=== PATIENT | female | born 1945 | race Caucasian/White ===

== ENCOUNTER → 2016-07-19 | Outpatient (CLI) | payer BC ==
[~2016-07-19] MED LIST: ADVIN10/60 INH; ALEN1TAB21 PO; ASPI81TA28 PO; CALC0.5C17 PO; CARV25TA2 PO; FERR1TAB23 PO; FLUO20CA35 PO; FRS/40 PO; GLIM4TAB2 PO; IPRASOL34 INH; LOSA100T65 PO; PRAV20TA PO; PRLSR20 PO; SPIRIVA PO; WARF1TAB6 PO
== END | disposition home or self-care (01) ==
LOC: C.LABMFLN 12:52
PROVIDERS: ATTEND Family Medicine
DX: L03.211 Cellulitis of face (principal)

== ENCOUNTER → 2016-08-10 | Outpatient (CLI) | payer BC ==
[2016-08-10 13:46] LABS: URINE APPEARANCE CLEAR (CLEAR); URINE BILIRUBIN NEG (NEG); URINE COLOR YELLOW; URINE EPITHELIAL CELL AUTO >30 /lpf (0-5); URINE NITRITE NEG (NEG); URINE SPECIFIC GRAVITY 1.017 (1.000-1.030); UROBILINOGEN NEG (NEG)
[2016-08-10 13:54] LABS: MANUAL MICROSCOPIC REQUIRED? NO; REVIEW REQ? YES
[2016-08-10 14:07] LABS: URINE PROTIEN/CREAT RATIO 0.3 (0-0.2); URINE TOTAL PROTEIN 40.8 mg/dl (0-11.9)
== END | disposition home or self-care (01) ==
LOC: C.LABMFLN 08:32
PROVIDERS: ATTEND Family Medicine
DX: R35.0 Frequency of micturition (principal); I12.9 Hypertensive chronic kidney disease with stage 1 through stage 4 chronic kidney disease, or unspecified chronic kidney disease; N18.3 Chronic kidney disease, stage 3 (moderate); N25.81 Secondary hyperparathyroidism of renal origin; D63.8 Anemia in other chronic diseases classified elsewhere; E55.9 Vitamin D deficiency, unspecified

== ENCOUNTER → 2016-08-24 | Outpatient (CLI) | payer BC ==
[2016-08-24 12:50] LABS: HEMATOCRIT 35.4 % (37-47); MEAN CELL VOLUME 79.7 fL (80-100); MEAN CORPUSCULAR HEMOGLOBIN 24.8 pg (25-34); MEAN CORPUSCULAR HGB CONC 31.1 g/dl (32-36); MEAN PLATELET VOLUME 9.8 fL (7.4-10.4); PLATELET COUNT 266 K/uL (130-400); RED BLOOD COUNT 4.44 M/uL (4.2-5.4); WHITE BLOOD COUNT 11.72 K/uL (4.8-10.8)
[2016-08-24 13:20] LABS: BLOOD UREA NITROGEN 24 mg/dl (7-18); BUN/CREATININE RATIO 14.9 (10-20); CALCIUM 9.6 mg/dl (8.5-10.1); CARBON DIOXIDE 26 mmol/L (21-32); CHLORIDE 106 mmol/L (98-107); GLUCOSE 174 mg/dl (70-99); PHOSPHORUS 3.4 mg/dl (2.5-4.9); SODIUM 141 mmol/L (136-145)
== END | disposition home or self-care (01) ==
LOC: C.LABMFLN 08:17
PROVIDERS: ATTEND Internal Medicine Nephrology
DX: I12.9 Hypertensive chronic kidney disease with stage 1 through stage 4 chronic kidney disease, or unspecified chronic kidney disease (principal); E55.9 Vitamin D deficiency, unspecified; N25.81 Secondary hyperparathyroidism of renal origin; D63.8 Anemia in other chronic diseases classified elsewhere; N18.3 Chronic kidney disease, stage 3 (moderate)

== ENCOUNTER → 2016-09-26 | Outpatient (CLI) | payer BC ==
[2016-09-26 18:18] LABS: CHOLESTEROL/HDL RATIO 3.9
[2016-09-27 06:31] LABS: ESTIMATED AVERAGE GLUCOSE 183 mg/dl; HA1C FLAG Normal (Normal)
--- NOTE | 2016-10-04 12:49 | CODING QUERY MEDICAL NECESSITY ---
SUPPORTING DIAGNOSIS NEEDED A supporting diagnosis is required for the test/procedure performed on this patient in order for us to be reimbursed by the patient's insurance. Please provide a supporting diagnosis for the following test/procedure listed below next to the test name along with your signature. *If there is no additional diagnosis for this patient that would support the following test/procedure please document that below next to the test/procedure. Test(s)/Procedure(s) that require a supporting diagnosis: DOS 09/26 * Hba1c DIAGNOSIS: Provider Signature: Date: Thank you Karen [facility] Information Management Once completed, please kindly fax back to [phone] For questions please call [phone]
== END | disposition home or self-care (01) ==
LOC: C.LABMFLN 10:32
PROVIDERS: ATTEND Family Medicine
DX: E55.9 Vitamin D deficiency, unspecified (principal); D63.8 Anemia in other chronic diseases classified elsewhere; I25.10 Atherosclerotic heart disease of native coronary artery without angina pectoris; E11.9 Type 2 diabetes mellitus without complications

== ENCOUNTER → 2017-01-30 | Outpatient (CLI) | payer BC ==
[2017-01-30 18:26] LABS: ALT/SGPT 17 U/L (12-78); AST/SGOT 10 U/L (15-37); BLOOD UREA NITROGEN 21 mg/dl (7-18); BUN/CREATININE RATIO 13.3 (10-20); CALCIUM 9.2 mg/dl (8.5-10.1); CARBON DIOXIDE 26 mmol/L (21-32); CHLORIDE 111 mmol/L (98-107); GLUCOSE 135 mg/dl (70-99); POTASSIUM 4.6 mmol/L (3.5-5.1); SODIUM 143 mmol/L (136-145)
[2017-01-30 18:30] LABS: ALKALINE PHOSPHATASE 92 U/L (45-117); CHOLESTEROL 133 mg/dl (0-200); CHOLESTEROL/HDL RATIO 2.3; HDL CHOLESTEROL 59 mg/dl; LDL CHOLESTEROL CALCULATED 58 mg/dl; TRIGLYCERIDES 78 mg/dl (0-150); VERY LOW DENSITY LIPOPROT CALC 16 mg/dl
[2017-01-30 18:39] LABS: HEMATOCRIT 34.1 % (37-47); MEAN CORPUSCULAR HEMOGLOBIN 24.7 pg (25-34); MEAN CORPUSCULAR HGB CONC 30.5 g/dl (32-36); MEAN PLATELET VOLUME 10.2 fL (7.4-10.4); PLATELET COUNT 221 K/uL (130-400); RED BLOOD COUNT 4.21 M/uL (4.2-5.4)
[2017-01-31 07:43] LABS: ESTIMATED AVERAGE GLUCOSE 192 mg/dl; HA1C FLAG Normal (Normal)
== END | disposition home or self-care (01) ==
LOC: C.LABMFLN 11:49
PROVIDERS: ATTEND Family Medicine
DX: I25.10 Atherosclerotic heart disease of native coronary artery without angina pectoris (principal); E78.5 Hyperlipidemia, unspecified; Z86.39 Personal history of other endocrine, nutritional and metabolic disease; D63.8 Anemia in other chronic diseases classified elsewhere; N18.3 Chronic kidney disease, stage 3 (moderate); Z86.79 Personal history of other diseases of the circulatory system; E83.42 Hypomagnesemia

== ENCOUNTER → 2017-02-06 | Outpatient (CLI) | payer BC ==
[2017-02-06 13:21] LABS: HEMATOCRIT 33.5 % (37-47)
[2017-02-06 13:34] LABS: TOTAL IRON BINDING CAPACITY 341 mcg/dl (250-450)
[2017-02-06 13:38] LABS: URINE PROTIEN/CREAT RATIO 0.2 (0-0.2); URINE TOTAL PROTEIN 26.6 mg/dl (0-11.9)
[2017-02-06 13:46] LABS: URINE APPEARANCE CLEAR (CLEAR); URINE BILIRUBIN NEG (NEG); URINE COLOR YELLOW; URINE EPITHELIAL CELL AUTO >30 /lpf (0-5); URINE NITRITE NEG (NEG); URINE SPECIFIC GRAVITY 1.015 (1.000-1.030); UROBILINOGEN NEG (NEG)
[2017-02-06 13:57] LABS: MANUAL MICROSCOPIC REQUIRED? NO; REVIEW REQ? NO
--- NOTE | 2017-03-02 10:16 | CODING QUERY MEDICAL NECESSITY ---
SUPPORTING DIAGNOSIS NEEDED Dr. Wilder, A supporting diagnosis is required for the test/procedure performed on this patient in order for us to be reimbursed by the patient's insurance. Please provide a supporting diagnosis for the following test/procedure listed below next to the test name along with your signature. *If there is no additional diagnosis for this patient that would support the following test/procedure please document that below next to the test/procedure. Test(s)/Procedure(s) that require a supporting diagnosis: * ([id number]) B12 VITAMIN LEVEL DIAGNOSIS: * ([id number]) FOLATE LEVEL DIAGNOSIS: DATE OF SERVICE: 02/06/17 Provider Signature: Date: Thank you Leo George [facility] Information Management Once completed, please kindly fax back to [phone] For questions please call [phone]
== END | disposition home or self-care (01) ==
LOC: C.LABMFLN 10:45
PROVIDERS: ATTEND Family Medicine
DX: Z95.2 Presence of prosthetic heart valve (principal); D63.8 Anemia in other chronic diseases classified elsewhere; Z86.79 Personal history of other diseases of the circulatory system; E55.9 Vitamin D deficiency, unspecified; N25.81 Secondary hyperparathyroidism of renal origin; E83.42 Hypomagnesemia; N18.3 Chronic kidney disease, stage 3 (moderate); R31.29 Other microscopic hematuria

== ENCOUNTER → 2017-07-24 | Outpatient (CLI) | payer BC ==
[~2017-07-24] MED LIST changes: +CALC0.5C PO; -CALC0.5C17 PO
== END | disposition home or self-care (01) ==
LOC: C.LABMFLN 12:03
PROVIDERS: ATTEND Family Medicine
DX: I35.9 Nonrheumatic aortic valve disorder, unspecified (principal)

== ENCOUNTER → 2017-09-04 | Outpatient (CLI) | payer BC ==
[~2017-09-04] MED LIST changes: -ALEN1TAB21 PO; +ALEN35TA42 PO
[2017-09-04 12:45] LABS: HEMATOCRIT 33.8 % (37-47); HEMOGLOBIN 10.4 g/dL (12.0-16.0); MEAN CELL VOLUME 78.8 fL (80-100); MEAN CORPUSCULAR HEMOGLOBIN 24.2 pg (25-34); MEAN CORPUSCULAR HGB CONC 30.8 g/dl (32-36); MEAN PLATELET VOLUME 9.8 fL (7.4-10.4); PLATELET COUNT 254 K/uL (130-400); RED CELL DISTRIBUTION WIDTH CV 16.1 % (11.5-14.5); RED CELL DISTRIBUTION WIDTH SD 46.4 fL (36.4-46.3); WHITE BLOOD COUNT 10.29 K/uL (4.8-10.8)
[2017-09-04 14:00] LABS: ALBUMIN 3.3 gm/dl (3.4-5.0); BLOOD UREA NITROGEN 15 mg/dl (7-18); CALCIUM 9.3 mg/dl (8.5-10.1); CARBON DIOXIDE 24 mmol/L (21-32); CREATININE 1.51 mg/dl (0.60-1.20); GLUCOSE 195 mg/dl (70-99); PHOSPHORUS 3.1 mg/dl (2.5-4.9); POTASSIUM 4.4 mmol/L (3.5-5.1); SODIUM 136 mmol/L (136-145)
== END | disposition home or self-care (01) ==
LOC: C.LABMFLN 10:46
PROVIDERS: ATTEND Internal Medicine Nephrology
DX: E55.9 Vitamin D deficiency, unspecified (principal); N25.81 Secondary hyperparathyroidism of renal origin; N18.3 Chronic kidney disease, stage 3 (moderate); D63.8 Anemia in other chronic diseases classified elsewhere

== ENCOUNTER → 2017-11-19 | Outpatient (CLI) | payer BC ==
[2017-11-19 17:51] LABS: HEMATOCRIT 32.2 % (37-47); HEMOGLOBIN 9.8 g/dL (12.0-16.0); MEAN CORPUSCULAR HEMOGLOBIN 23.7 pg (25-34); MEAN CORPUSCULAR HGB CONC 30.4 g/dl (32-36); MEAN PLATELET VOLUME 10.3 fL (7.4-10.4); PLATELET COUNT 264 K/uL (130-400); RED CELL DISTRIBUTION WIDTH CV 16.8 % (11.5-14.5); RED CELL DISTRIBUTION WIDTH SD 48.4 fL (36.4-46.3); WHITE BLOOD COUNT 9.51 K/uL (4.8-10.8)
[2017-11-19 19:58] LABS: BLOOD UREA NITROGEN 15 mg/dl (7-18); CALCIUM 8.8 mg/dl (8.5-10.1); CARBON DIOXIDE 26 mmol/L (21-32); CREATININE 1.65 mg/dl (0.60-1.20); GLUCOSE 360 mg/dl (70-99); PHOSPHORUS 2.1 mg/dl (2.5-4.9); POTASSIUM 4.5 mmol/L (3.5-5.1); SODIUM 136 mmol/L (136-145)
== END | disposition home or self-care (01) ==
LOC: C.LABMFLN 15:15
PROVIDERS: ATTEND Family Medicine
DX: E55.9 Vitamin D deficiency, unspecified (principal); D63.8 Anemia in other chronic diseases classified elsewhere; E83.42 Hypomagnesemia; N18.3 Chronic kidney disease, stage 3 (moderate); E87.5 Hyperkalemia; I42.8 Other cardiomyopathies; I12.9 Hypertensive chronic kidney disease with stage 1 through stage 4 chronic kidney disease, or unspecified chronic kidney disease; D50.9 Iron deficiency anemia, unspecified

== ENCOUNTER 2019-03-12 15:21 | Inpatient (IN) ==
[2019-03-12] MEDS ORDERED: SODIUM CHLORIDE 0.9% 250 ML IV PRN ×2 (15:54→16:06)
--- NOTE | 2019-03-12 17:16 | Gastrointestinal Consultation ---
Date of Consultation March 12, 2019 Assessment & Plan (1) Anemia: (2) Heme positive stool: Recommend holding coumadin at this time I would not transfuse FFP, as she is not having an acute GI bleed, and her presentation is that of a slow chronic GI bleed Transfuse PRN to maintain her H/H around 10/30 Protonix 40 mg by mouth BID Bowel prep tonight Clear liquids now NPO after midnight EGD and Colonoscopy in the AM History of Present Illness Reason for Consultation: Anemia with heme + stool History of Present Illness Eleanor Bermeo is a pleasant 74 yo CF who presented to the ER following recommendations from Dr. Navarrete, after he received her outpatient lab studies which showed profound anemia. On arrival to the ER, she was noted to have an H/H of 5.4 and 19.3. She was also noted to have an elevated INR of 3.1, as she takes coumadin therapy at home. She has had some dark stools at home in the past few months, but states that she does not take any NSAID therapy. Her rectal exam in the ER revealed brown stool in the rectal vault which was heme positive. At the time I saw the patient, she denied any excessive weakness, lightheadedness, dizziness, or overt GI bleeding. She states that she does not walk, and uses a wheel-chair for her mobility. Her last EGD and colonoscopy were performed approximately [address] Mac. She denies any further complaints at this time. She is hemodynamically stable. Allergies Allergy/AdvReac Type Severity Reaction Status Date / Time amlodipine Allergy Severe RESTLESS Verified 03/12/19 16:44 LEGS OR COLD HANDS/FEET atorvastatin Allergy Severe RESTLESS Verified 03/12/19 16:44 LEGS OR COLD HANDS OR FEET hydrocortisone Allergy Intermediate RASH Verified 03/12/19 16:44 Home Medications Home Medications Medication Instructions Recorded Confirmed Type albuterol sulfate HFA 90 2 puffs INHALATION Q4 PRN gm 12/09/18 03/12/19 History mcg/actuation aerosol inhaler alendronate 70 mg tablet 70 mg PO WK tab 12/09/18 03/12/19 History ergocalciferol (vitamin D2) 50,000 50,000 units PO .COMPLEX cap 12/09/18 03/12/19 History unit capsule fluoxetine 20 mg capsule 20 mg PO DAILY cap 12/09/18 03/12/19 History fluticasone furoate 200 1 puffs INHALATION DAILY ea 12/09/18 03/12/19 History mcg-vilanterol 25 mcg/dose inhalation powder furosemide 40 mg tablet 40 mg PO DAILY PRN tab 12/09/18 03/12/19 History losartan 100 mg tablet 100 mg PO QPM tab 12/09/18 03/12/19 History magnesium oxide 400 mg (241.3 mg 400 mg PO DAILY tab 12/09/18 03/12/19 History magnesium) tablet omeprazole 20 mg capsule,delayed 20 mg PO DAILY cap 12/09/18 03/12/19 History release pravastatin 80 mg tablet 80 mg PO QPM tab 12/09/18 03/12/19 History tiotropium bromide 2.5 2 puffs INHALATION DAILY PRN gm 12/09/18 03/12/19 History mcg/actuation mist for inhalation glimepiride 4 mg tablet 4 mg PO BID tab 02/14/19 03/12/19 History warfarin 2 mg tablet 4 mg PO .QSUNDAY tab 02/14/19 03/12/19 History carvedilol 50 mg PO BID 03/12/19 03/12/19 History dulaglutide 1.5 mg SUBCUT WK 03/12/19 03/12/19 History warfarin [Jantoven] 2 mg PO 6XWK 03/12/19 03/12/19 History Patient History Medical History Anticoagulant long-term use CAD (coronary artery disease) (Chronic) Hypertension (Chronic) LBBB (left bundle branch block) (Chronic) Leg edema (Chronic) Nonischemic cardiomyopathy (Chronic) Systolic CHF (Chronic) Type 2 diabetes mellitus (Chronic) H/O cardiac pacemaker (Resolved) H/O: hysterectomy (Resolved) Surgical History Status post mechanical aortic valve replacement (Chronic) H/O lumpectomy (Resolved) Hx of CABG (Resolved) Social History Feels Safe at Home: Yes Smoking Status: Never smoker Tobacco Type: cigarettes ; Review of Systems Review of Systems: All systems reviewed & are unremarkable except as noted in HPI & below Physical Exam Constitutional: WD/WN, vitals as above Respiratory: normal respiratory effort, lungs clear to auscultation Cardiovascular: RRR, no murmur, no edema Gastrointestinal (Abdomen): normal bowel sounds, soft, nontender, no hepatosplenomegaly Skin: + pallor Psychiatric: A+Ox3, euthymic affect Apperance: appropriately dressed Results & Data Vital Signs (Past 12 Hours) Vital Signs Temp Pulse Resp BP Pulse Ox 03/12/19 15:23 37.1 C 86 18 165/71 H 99 PG Care Time/CCT Total # of Minutes Spent Total Time Spent with Patient: Total time spent is greater than 50% in coordination of care (as documented) at patient's floor/unit and/or counseling patient: (1) Anemia Anemia type: unspecified type Qualified Code(s): D64.9 - Anemia, unspecified
--- NOTE | 2019-03-12 17:56 | Emergency Department Note ---
Entered by Ellen Bahena acting as a scribe for History of Present Illness General Chief complaint: Abnormal Labs/Diagnostic Testing Stated complaint: ANEMIA Time Seen by Provider: 03/12/19 15:36 Source: patient History of Present Illness Onset (ago): hour(s) (this morning) Location: left and right Pain Consistency: + other (episode) Quality: + other (abnormal blood test ) Associated symptoms: + other (-rectal bleeding; -black/bloody stool); no chest pain and no shortness of breath The patient is a 74 year old female who presents to the Emergency Room with complaints of an episode of abnormal blood test results that were obtained this morning. The patient reports the blood tests were ordered by Dr. Navarrete for kidney issues. The patient notes her family doctor is Dr. Wilder. The patient denies rectal bleeding, black/bloody stool, chest pain, or shortness of breath. The patient notes she has a pacemaker. The patient also notes the right side of her body does not function, and she states she rarely moves or exerts herself due to this. The patient does not know if she ever had a blood transfusion. The patient does note a past heart valve replacement. Home Medications Home Medications Medication Instructions Recorded Confirmed Type albuterol sulfate HFA 90 2 puffs INHALATION Q4 PRN gm 12/09/18 03/12/19 History mcg/actuation aerosol inhaler alendronate 70 mg tablet 70 mg PO WK tab 12/09/18 03/12/19 History ergocalciferol (vitamin D2) 50,000 50,000 units PO .COMPLEX cap 12/09/18 03/12/19 History unit capsule fluoxetine 20 mg capsule 20 mg PO DAILY cap 12/09/18 03/12/19 History fluticasone furoate 200 1 puffs INHALATION DAILY ea 12/09/18 03/12/19 History mcg-vilanterol 25 mcg/dose inhalation powder furosemide 40 mg tablet 40 mg PO DAILY PRN tab 12/09/18 03/12/19 History losartan 100 mg tablet 100 mg PO QPM tab 12/09/18 03/12/19 History magnesium oxide 400 mg (241.3 mg 400 mg PO DAILY tab 12/09/18 03/12/19 History magnesium) tablet omeprazole 20 mg capsule,delayed 20 mg PO DAILY cap 12/09/18 03/12/19 History release pravastatin 80 mg tablet 80 mg PO QPM tab 12/09/18 03/12/19 History tiotropium bromide 2.5 2 puffs INHALATION DAILY PRN gm 12/09/18 03/12/19 History mcg/actuation mist for inhalation glimepiride 4 mg tablet 4 mg PO BID tab 02/14/19 03/12/19 History warfarin 2 mg tablet 4 mg PO .QSUNDAY tab 02/14/19 03/12/19 History carvedilol 50 mg PO BID 03/12/19 03/12/19 History dulaglutide 1.5 mg SUBCUT WK 03/12/19 03/12/19 History warfarin [Jantoven] 2 mg PO 6XWK 03/12/19 03/12/19 History Allergies Allergy/AdvReac Type Severity Reaction Status Date / Time amlodipine Allergy Severe RESTLESS Verified 03/12/19 16:44 LEGS OR COLD HANDS/FEET atorvastatin Allergy Severe RESTLESS Verified 03/12/19 16:44 LEGS OR COLD HANDS OR FEET hydrocortisone Allergy Intermediate RASH Verified 03/12/19 16:44 Past Med/Surg History Medical History Anticoagulant long-term use CAD (coronary artery disease) (Chronic) Hypertension (Chronic) LBBB (left bundle branch block) (Chronic) Leg edema (Chronic) Nonischemic cardiomyopathy (Chronic) Systolic CHF (Chronic) Type 2 diabetes mellitus (Chronic) H/O cardiac pacemaker (Resolved) H/O: hysterectomy (Resolved) Surgical History Status post mechanical aortic valve replacement (Chronic) H/O lumpectomy (Resolved) Hx of CABG (Resolved) Social History Feels Safe at Home: Yes Smoking Status: Never smoker Tobacco Type: cigarettes ; Review of Systems See HPI for pertinent positives & negatives. and A total of 10 systems reviewed and were otherwise negative Physical Exam Vital Signs Vital Signs - 24 hr 03/12/19 15:23 Temperature 37.1 C Temperature Source Oral Sepsis Recent Fever Within 48 Hours No Sepsis New/Unexplained Change in Mental Status No Sepsis Action Taken by Nursing No Action Required Pulse Rate 86 Respiratory Rate 18 Blood Pressure 165/71 H Blood Pressure Mean 102 Pulse Oximetry 99 GENERAL: Patient is awake, alert, and somewhat anxious appearing EYES: The conjunctivae are clear. The pupils are round and reactive. EARS, NOSE, MOUTH AND THROAT: The nose is without any evidence of any deformity. Mucous membranes are moist.Tongue is midline NECK: The neck is nontender and supple. RESPIRATORY: Diminished lung sounds at both bases, rales noted at both bases CARDIOVASCULAR: Regular rate and rhythm to auscultation. No definite murmur noted. GASTROINTESTINAL: The abdomen is soft. Bowel sounds are present in all quadrants. Abdomen is nontender. RECTAL: Brown stool with trace heme positive. MUSCULOSKELETAL/EXTREMITIES: There is no evidence of gross deformity. Full range of motion is noted in the hips and shoulders. SKIN: Trace pedal edema bilaterally. NEUROLOGIC: Patient is awake alert and oriented x3. Course 1551: Past medical records reviewed. The patient was evaluated in room A4A. A complete history and physical exam was performed. 1615: I reviewed the patient's case with Dr. Estrada-Gretchen Ashraf. Dr. Estrada wants to give the patient FFP. Dr. Estrada will evaluate the patient for further management. Consultations Consultation #1: I reviewed the patient's case with Dr. Estrada-Gretchen Ashraf. Dr. Estrada wants to give the patient FFP. Dr. Estrada will evaluate the patient for further management. Time: 16:15 Medical Decision Making Differential Diagnosis Differential diagnosis: Etiologies such as metabolic, infection, hypo/hyperglycemia, electrolyte abnormalities, cardiac sources, intracerebral event, toxicologic, neurologic, as well as others were entertained. Medical Records Attestation: I reviewed the patient's medical records. Home Medications Current Medication List: was personally reviewed by tn Laboratory Data Attestation: I reviewed the patient's lab results. Lab Results 03/12/19 Range/Units 16:02 Blood Type B Positive Antibody Screen NEGATIVE Crossmatch See Detail Blood Pressure Blood Pressure Findings: Elevated blood pressure Blood Pressure Disposition: further management by hospitalist CONNOR Renee The patient is a 74-year-old female who is a history of chronic renal insufficiency. She had routine laboratory studies done by her derrickman helper and was told to go to the emergency department for abnormal labs. The patient denies having any rectal bleeding or black stool but her stool was heme positive on physical exam. Her hemoglobin was very critical. She is complaining of some dyspnea on exertion. The patient did have a type and screen done earlier. Blood products were ordered in the emergency department. I did consent the patient for blood products in the emergency department. I discussed the patient's laboratory results with her. She was started on blood transfusion in the emergency department. I discussed her case with the on-call [facility] hospitalist group. They did recommend that we give the patient FFP given her current anticoagulation use. She was ordered 1 unit of FFP in the emergency department. I discussed the patient's condition with her. She was agreeable to evaluation by the hospitalist for further inpatient management of this anemia. The patient may require further work-up to determine the cause of this anemia. She did not have significant melena or gross blood per rectum. I am unsure if the GI bleeding is the cause of her overall anemia she may require further work- up. Impression & Plan Anemia, MOMIN (dyspnea on exertion), Heme positive stool Critical Care Time Critical Care Time: Yes Total Critical Care Time: 60 I have personally spent greater than 60 minutes of critical care time in the direct management of this patient. This includes bedside care, interpretation of diagnostic studies, and testing, discussion with consultants, patient, and family members, and other required patient management activities. This 60 minutes is in excess of all separately billable procedures. Discharge Plan Visit Data Chief Complaint: Abnormal Labs/Diagnostic Testing Stated Complaint: ANEMIA ED Provider: Wiley Soliz Discharge Problem: Anemia, MOMIN (dyspnea on exertion), Heme positive stool Patient Disposition: Being Evaluated by Hospitalist Forms Stand Alone Forms: My [facility] Prescriptions Prescriptions: No Action Breo Ellipta 200-25 mcg/dose blister with device 1 puffs inhalation DAILY RF: 0 Spiriva Respimat 2.5 mcg/actuation mist 2 puffs inhalation DAILY PRN (Reason: Shortness Of Breath Or Wheezing) RF: 0 fluoxetine 20 mg capsule 20 mg PO DAILY RF: 0 losartan 100 mg tablet 100 mg PO QPM RF: 0 pravastatin 80 mg tablet 80 mg PO QPM RF: 0 omeprazole 20 mg capsule,delayed release(DR/EC) 20 mg PO DAILY RF: 0 albuterol sulfate 90 mcg/actuation HFA aerosol inhaler 2 puffs inhalation Q4 PRN (Reason: Shortness Of Breath Or Wheezing) RF: 0 furosemide 40 mg tablet 40 mg PO DAILY PRN (Reason: Fluid Retention) RF: 0 ergocalciferol (vitamin D2) 50,000 unit capsule 50,000 units PO .COMPLEX RF: 0 magnesium oxide 400 mg (241.3 mg magnesium) tablet 400 mg PO DAILY RF: 0 alendronate 70 mg tablet 70 mg PO WK RF: 0 glimepiride 4 mg tablet 4 mg PO BID RF: 0 warfarin 2 mg tablet 4 mg PO .QSUNDAY RF: 0 warfarin [Jantoven] 2 mg tablet 2 mg PO 6XWK RF: 0 carvedilol 25 mg tablet 50 mg PO BID RF: 0 dulaglutide 1.5 mg/0.5 mL pen injector 1.5 mg subcut WK RF: 0 Referrals Referrals: Kevin Wilder MD [Primary Care Provider] - Discharge Problem: Anemia Qualifiers: Anemia type: unspecified type Qualified Code(s): D64.9 - Anemia, unspecified The scribe's documentation has been prepared under my direction and personally reviewed by me in its entirety. I confirm that the note above accurately reflects all work, treatment, procedures, and medical decision making performed by me.
--- NOTE | 2019-03-12 21:32 | History & Physical Report ---
Date of Service March 12, 2019 Assessment & Plan (1) GI bleeding: Admit to medicine on telemetry Vital signs every 4 hours CBC every 6 hours 1 unit of blood transfused in the ER Continue with another unit of blood tonight, keep H&H 10/30 Clear liquids N.p.o. after midnight Hold warfarin due to GI bleed Bowel prep Protonix twice daily p.o. Appreciated GI recommendations Full code Present on Admission?: Yes (2) Anemia: As the above Present on Admission?: Yes (3) Heme positive stool: As the above Present on Admission?: Yes (4) Aortic valve disorder: Continue monitoring. Hold warfarin while patient has GI bleed Present on Admission?: Yes (5) Biventricular ICD (implantable cardioverter-defibrillator) in place: Continue home medicine Present on Admission?: Yes (6) Chronic kidney disease, stage 3: Avoid nephrotoxic agents Present on Admission?: Yes (7) Dyslipidemia: Continue pravastatin 80 mg p.o. every afternoon Present on Admission?: Yes (8) Diabetes mellitus: Glycemic control managed by pharmacy. Present on Admission?: Yes History of Present Illness Chief Complaint: Dyspnea on exertion, severe anemia, melena Primary Care Provider: Kevin Wilder MD Patient is a 74 years old female with past medical history of CVA, hemiplegia and hemiparesis following CVA, anemia, osteoporosis, diabetes mellitus, stage III chronic kidney insufficiency, coronary artery disease with biventricular ICD/implantable cardioverter defibrillator who presented to the emergency room with shortness of breath on exertion and reported black stool for approximately 2 months. Patient reports that this morning she went for the labs ordered by Dr. Navarrete her certified professional controller for follow-up of her chronic kidney issues and he informed her that she need to go immediately to the emergency room because of severe anemia. Patient patient appears in no distress while in the bed. She becomes shortness of breath when she is walking around. Her appetite is good. She is on warfarin for aortic valve disorder. Patient denies fever chills chest pain abdominal pain frequency urgency hemoptysis hematemesis. She reports m chaitanya for 2 months. 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 And he reported to hold Coumadin at this time, to transfuse as needed to maintain her H&H around 10/30. To start Protonix 40 mg by mouth twice daily. Bowel prep tonight. N.p.o. after midnight. Clear liquids now. EGD and colonoscopy in a.m. Allergies Allergy/AdvReac Type Severity Reaction Status Date / Time amlodipine Allergy Severe RESTLESS Verified 03/12/19 16:44 LEGS OR COLD HANDS/FEET atorvastatin Allergy Severe RESTLESS Verified 03/12/19 16:44 LEGS OR COLD HANDS OR FEET hydrocortisone Allergy Intermediate RASH Verified 03/12/19 16:44 Home Medications Home Medications Medication Instructions Recorded Confirmed Type albuterol sulfate HFA 90 2 puffs INHALATION Q4 PRN gm 12/09/18 03/12/19 History mcg/actuation aerosol inhaler alendronate 70 mg tablet 70 mg PO WK tab 12/09/18 03/12/19 History ergocalciferol (vitamin D2) 50,000 50,000 units PO .COMPLEX cap 12/09/18 03/12/19 History unit capsule fluoxetine 20 mg capsule 20 mg PO DAILY cap 12/09/18 03/12/19 History fluticasone furoate 200 1 puffs INHALATION DAILY ea 12/09/18 03/12/19 History mcg-vilanterol 25 mcg/dose inhalation powder furosemide 40 mg tablet 40 mg PO DAILY PRN tab 12/09/18 03/12/19 History losartan 100 mg tablet 100 mg PO QPM tab 12/09/18 03/12/19 History magnesium oxide 400 mg (241.3 mg 400 mg PO DAILY tab 12/09/18 03/12/19 History magnesium) tablet omeprazole 20 mg capsule,delayed 20 mg PO DAILY cap 12/09/18 03/12/19 History release pravastatin 80 mg tablet 80 mg PO QPM tab 12/09/18 03/12/19 History tiotropium bromide 2.5 2 puffs INHALATION DAILY PRN gm 12/09/18 03/12/19 History mcg/actuation mist for inhalation glimepiride 4 mg tablet 4 mg PO BID tab 02/14/19 03/12/19 History warfarin 2 mg tablet 4 mg PO .QSUNDAY tab 02/14/19 03/12/19 History carvedilol 50 mg PO BID 03/12/19 03/12/19 History dulaglutide 1.5 mg SUBCUT WK 03/12/19 03/12/19 History warfarin [Jantoven] 2 mg PO 6XWK 03/12/19 03/12/19 History Past Med/Surg History Medical History Anticoagulant long-term use CAD (coronary artery disease) (Chronic) Hypertension (Chronic) LBBB (left bundle branch block) (Chronic) Leg edema (Chronic) Nonischemic cardiomyopathy (Chronic) Systolic CHF (Chronic) Type 2 diabetes mellitus (Chronic) H/O cardiac pacemaker (Resolved) H/O: hysterectomy (Resolved) Surgical History Status post mechanical aortic valve replacement (Chronic) H/O lumpectomy (Resolved) Hx of CABG (Resolved) Social History Feels Safe at Home: Yes Smoking Status: Never smoker Tobacco Type: cigarettes ; Review of Systems Review of Systems: All systems reviewed & are unremarkable except as noted in HPI & below Physical Exam Constitutional: WD/WN, vitals as above well developed and + morbidly obese Eyes: PERRL, conjunctivae normal, anicteric sclerae ENMT: external ear and nose normal, oropharynx normal Neck: trachea midline, no thyromegaly Respiratory: normal respiratory effort, lungs clear to auscultation Cardiovascular: Heart Sounds: normal S1 and normal S2 Palpation: + palpable S3 mechanical valve Gastrointestinal (Abdomen): normal bowel sounds, soft, nontender, no hepatosplenomegaly Musculoskeletal: no cyanosis or clubbing, extremities motor strength 5/5 hemiparesis on the right Skin: pale Neurologic: patellar DTR's 2+ bilat, sensation intact Psychiatric: A+Ox3, euthymic affect Lymphatic: no cervical or axillary lymphadenopathy Results & Data Vital Signs (Past 12 Hours) Vital Signs Temp Pulse Resp BP Pulse Ox 03/12/19 20:40 83 18 99 03/12/19 20:30 83 26 H 166/88 H 99 03/12/19 20:20 84 18 99 03/12/19 20:15 84 35 H 159/96 H 99 03/12/19 20:10 94 H 14 98 03/12/19 20:00 82 27 H 162/75 H 99 03/12/19 19:50 83 33 H 99 03/12/19 19:45 83 25 H 166/67 H 99 03/12/19 19:40 85 35 H 100 03/12/19 19:30 85 19 167/72 H 99 03/12/19 19:20 82 22 99 03/12/19 19:15 81 19 161/83 H 99 03/12/19 19:10 86 19 98 03/12/19 19:01 84 18 146/53 H 98 03/12/19 19:00 85 21 98 03/12/19 18:50 83 15 98 03/12/19 18:45 82 15 161/72 H 98 03/12/19 18:40 84 17 99 03/12/19 18:30 82 22 140/82 99 03/12/19 18:20 83 19 99 03/12/19 18:15 85 16 164/77 H 99 03/12/19 18:10 36.9 C 83 17 159/73 H 98 03/12/19 18:00 85 20 159/73 H 99 03/12/19 17:53 94 H 17 98 03/12/19 17:52 37.3 C 88 18 169/78 H 98 03/12/19 17:46 84 19 169/78 H 97 03/12/19 15:23 37.1 C 86 18 165/71 H 99 Code Status & VTE Plan Code Status full code VTE Prophylaxis Plan VTE Prophylaxis will be ordered: No PG Care Time/CCT Total # of Minutes Spent Total Time Spent with Patient: Total time spent is greater than 50% in coordination of care (as documented) at patient's floor/unit and/or counseling patient: (1) Anemia Anemia type: unspecified type Qualified Code(s): D64.9 - Anemia, unspecified
[2019-03-12] MEDS ORDERED: MAGNESIUM HYDROXIDE SUSP 30 ML UDC PO PRN (21:44)
[2019-03-12] MEDS ORDERED: FUROSEMIDE 40 MG TAB PO PRN (21:44)
[2019-03-12] MEDS ORDERED: ACETAMINOPHEN 325 MG TAB PO PRN (21:44)
[2019-03-12] MEDS ORDERED: ZOLPIDEM TARTRATE 5 MG TAB PO PRN (21:44)
[2019-03-12] MEDS ORDERED: TIOTROPIUM BROMIDE 5 PUFF/90 MCG INH INH PRN (21:44)
[2019-03-12] MEDS ORDERED: ALUMINUM/MAGNESIUM SUSP 30 ML UDC PO PRN (21:44)
[2019-03-12] MEDS ORDERED: ALBUTEROL HFA 8 GM INHALER INH PRN (21:44)
[2019-03-12] MEDS ORDERED: HydrALAZINE 10 MG TAB PO PRN (22:05)
[2019-03-12] MEDS ORDERED: FUROSEMIDE 40 MG/4 ML VIAL IV SCH (22:15)
[2019-03-12] MEDS: LOSARTAN POTASSIUM 50 MG TAB PO SCH (22:25)
[2019-03-12] MEDS: carvediloL 25 MG TAB PO SCH (22:25)
[2019-03-12] MEDS: PANTOprazole 40 MG TAB PO SCH (22:25)
[2019-03-12] MEDS: PRAVASTATIN SOD 40 MG TAB PO SCH (22:25)
[2019-03-12 22:44] LABS: INR 3.1 (0.9-1.1); Partial Thromboplastin Ratio 1.6; Partial Thromboplastin Time 43.8 Seconds (21.0-31.0)
[2019-03-12 22:47] LABS: Hematocrit (blood only) 22.1 % (37-47); Hemoglobin 6.5 g/dL (12.0-16.0); Mean Corpuscular Hemoglobin 20.3 pg (25-34); Mean Corpuscular Hgb Conc 29.4 g/dL (32-36); Mean Corpuscular Volume 69.1 fL (80-100); Mean Platelet Volume 9.4 fL (7.4-10.4); Platelet Count 304 K/uL (130-400); RDW Coefficient of Variation 19.1 % (11.5-14.5); RDW Standard Deviation 48.4 fL (36.4-46.3); White Blood Count 10.65 K/uL (4.8-10.8)
[2019-03-12 22:49] LABS: Albumin Level 2.8 gm/dl (3.4-5.0); BUN Creatinine Ratio 10.2 (10-20); Calcium 8.7 mg/dl (8.5-10.1); Creatinine Clr Calc Pharmacy 29.5 ml/min; Est GFR (African American) 33.4; Est GFR (Non-African American) 28.8
[2019-03-12 22:52] LABS: Albumin Globulin Ratio 0.9 (0.9-2); Bilirubin,Total 0.4 mg/dl (0.2-1); Globulin 3.2 gm/dl (2.5-4.0)
[2019-03-12] MEDS: LAVAGE SOLUTION 4000ML PO SCH (22:53)
[2019-03-12 22:56] LABS: Basophils # (auto) 0.02 K/uL (0-0.2); Basophils % (auto) 0.2 %; Eosinophils # (auto) 0.18 K/uL (0-0.5); Eosinophils % (auto) 1.7 %; Hypochromasia Present; Immature Granulocytes # (auto) 0.04 K/uL (0.00-0.02); Immature Granulocytes % (auto) 0.4 %; Lymphocytes # (auto) 2.25 K/uL (1.2-3.4); Lymphocytes % (auto) 21.1 %; Monocytes # (auto) 1.12 K/uL (0.11-0.59); Monocytes % (auto) 10.5 %; Neutrophils # (auto) 7.04 K/uL (1.4-6.5); Neutrophils % (auto) 66.1 %; Tear Drop Cells 1+
[2019-03-12 23:01] LABS: Phosphorus 3.1 mg/dl (2.5-4.9)
[2019-03-12] MEDS: [UNRECOGNIZED DRUG - REMARK] SCH (23:35)
[2019-03-12] MEDS: BREO ELLIPTA: ORDER AWAITING ACTION SCH (23:35)
[2019-03-13 03:57] LABS: Basophils # (auto) 0.02 K/uL (0-0.2); Basophils % (auto) 0.2 %; Eosinophils # (auto) 0.17 K/uL (0-0.5); Eosinophils % (auto) 1.7 %; Immature Granulocytes # (auto) 0.03 K/uL (0.00-0.02); Immature Granulocytes % (auto) 0.3 %; Lymphocytes # (auto) 1.96 K/uL (1.2-3.4); Lymphocytes % (auto) 19.1 %; Mean Corpuscular Hemoglobin 21.7 pg (25-34); Mean Corpuscular Volume 70.5 fL (80-100); Mean Platelet Volume 9.3 fL (7.4-10.4); Monocytes # (auto) 1.16 K/uL (0.11-0.59); Monocytes % (auto) 11.3 %; Neutrophils # (auto) 6.92 K/uL (1.4-6.5); Neutrophils % (auto) 67.4 %; Platelet Count 313 K/uL (130-400); RDW Coefficient of Variation 19.8 % (11.5-14.5); RDW Standard Deviation 51.5 fL (36.4-46.3); Red Blood Count 3.69 M/uL (4.2-5.4); White Blood Count 10.26 K/uL (4.8-10.8)
[2019-03-13 04:06] LABS: INR 2.9 (0.9-1.1); Mean Corpuscular Hgb Conc 30.8 g/dL (32-36); Prothrombin Time 27.7 Seconds (9.0-12.0)
[2019-03-13 04:15] LABS: Albumin Level 2.9 gm/dl (3.4-5.0); BUN Creatinine Ratio 9.3 (10-20); Calcium 8.5 mg/dl (8.5-10.1); Creatinine Clr Calc Pharmacy 29.7 ml/min; Est GFR (African American) 33.6; Potassium 4.2 mmol/L (3.5-5.1)
[2019-03-13 04:20] LABS: Albumin Globulin Ratio 0.9 (0.9-2); Bilirubin,Total 0.7 mg/dl (0.2-1); Globulin 3.2 gm/dl (2.5-4.0); Total Protein 6.1 gm/dl (6.4-8.2)
[2019-03-13 04:22] LABS: Hypochromasia Present; Microcytosis Present; Ovalocytes 1+; Polychromasia 1+
[2019-03-13] MEDS: LAVAGE SOLUTION 4000ML PO SCH (05:48)
[2019-03-13 07:09] LABS: Basophils # (auto) 0.02 K/uL (0-0.2); Basophils % (auto) 0.2 %; Eosinophils # (auto) 0.17 K/uL (0-0.5); Eosinophils % (auto) 1.6 %; Hematocrit (blood only) 27.6 % (37-47); Hemoglobin 8.5 g/dL (12.0-16.0); Immature Granulocytes # (auto) 0.03 K/uL (0.00-0.02); Immature Granulocytes % (auto) 0.3 %; Lymphocytes # (auto) 1.72 K/uL (1.2-3.4); Lymphocytes % (auto) 16.2 %; Mean Corpuscular Hemoglobin 21.5 pg (25-34); Mean Corpuscular Hgb Conc 30.8 g/dL (32-36); Mean Corpuscular Volume 69.9 fL (80-100); Mean Platelet Volume 9.3 fL (7.4-10.4); Monocytes # (auto) 1.16 K/uL (0.11-0.59); Monocytes % (auto) 10.9 %; Neutrophils # (auto) 7.53 K/uL (1.4-6.5); Neutrophils % (auto) 70.8 %; Platelet Count 329 K/uL (130-400); RDW Coefficient of Variation 19.6 % (11.5-14.5); RDW Standard Deviation 50.6 fL (36.4-46.3); Red Blood Count 3.95 M/uL (4.2-5.4); White Blood Count 10.63 K/uL (4.8-10.8)
[2019-03-13 07:30] LABS: Anisocytosis Present; Hypochromasia Present; Microcytosis Present; Ovalocytes 1+; Tear Drop Cells 1+
[2019-03-13] MEDS: carvediloL 25 MG TAB PO SCH ×2 (08:43→19:18)
[2019-03-13] MEDS: MAGNESIUM OXIDE 400 MG TAB PO SCH (08:44)
[2019-03-13] MEDS: FLUOXETINE HCL 20 MG CAP PO SCH (08:44)
[2019-03-13] MEDS: BREO ELLIPTA: ORDER AWAITING ACTION SCH ×3 (08:45→22:40)
[2019-03-13] MEDS ORDERED: PANTOprazole 40 MG in SYRINGE 0 ML IV SCH (09:00)
[2019-03-13] MEDS: [UNRECOGNIZED DRUG - REMARK] SCH ×3 (09:34→22:40)
--- NOTE | 2019-03-13 10:03 | History & Physical Bridge Note ---
Date of Service March 13, 2019 History & Physical Bridge Note I have examined the patient, reviewed the History & Physical and in the interval since the performance of the History & Physical I have noted the following changes of clinical significance: Patient states she is passing liquid stools but has completed 1/2 of the GoLytely solution at this time. H&H has gone to 8.5/27.6 after transfusion yesterday. She denies any vomiting, abdominal pain or overt GIB symptoms. PE: A&Ox3. RRR with M/R/G. Lungs CTA bilaterally. Abdomen soft, nontender. +bowel sounds. A/P: Patient admitted with profound anemia and heme positive stool. 1)Complete bowel prep. 2)EGD/Colonoscopy with Dr. August today. 3)Additional recommendations pending results of testing. Supervising Physician Co-Signing Physician Notes Agree with FRANCIS Shankar as above Abd: Soft, NT, ND, +BS No overt GI bleeding per nursing staff Patient was still drinking bowel prep this afternoon. Will hold off on EGD/Colonoscopy until tomorrow AM Clear liquids tonight, NPO after midnight
[2019-03-13] MEDS ORDERED: DEXTROSE 50% 50 ML SYRINGE IV PRN (10:15)
[2019-03-13] MEDS ORDERED: GLUCAGON FOR INJ 1 MG VIAL IM PRN (10:15)
[2019-03-13] MEDS ORDERED: GLUCOSE 10 TABS/TUBE PO PRN (10:15)
[2019-03-13] MEDS ORDERED: GLUCOSE 40% GEL 15 GM TUBE PO PRN (10:15)
[2019-03-13] MEDS ORDERED: CARBOHYDRATES FOR HYPOGLYCEMIA PO PRN (10:15)
--- NOTE | 2019-03-13 10:22 | Anesthesiology Consultation ---
Date of Service March 13, 2019 The patient did not finish her prep until 14:20 so the earliest her procedure could be done was 16:30. The OR staff would likely not be available until 18:[address] so Dr. August elected to delay the procedure until tomorrow. Assessment & Plan (1) Encounter for pre-operative examination: History Surgery Operation Date: 03/14/19 09:30 Proposed Procedures p Colonoscopy EGD Dr. August - Cruz Knight Case, DO Height/Weight Height: 5 ft Weight: 90.1 kg Allergies Allergy/AdvReac Type Severity Reaction Status Date / Time amlodipine Allergy Severe RESTLESS Verified 03/12/19 16:44 LEGS OR COLD HANDS/FEET atorvastatin Allergy Severe RESTLESS Verified 03/12/19 16:44 LEGS OR COLD HANDS OR FEET hydrocortisone Allergy Intermediate RASH Verified 03/12/19 16:44 Medications Home Medications Medication Instructions Recorded Confirmed Last Taken albuterol sulfate HFA 90 2 puffs INHALATION Q4 PRN gm 12/09/18 03/12/19 Unknown mcg/actuation aerosol inhaler alendronate 70 mg tablet 70 mg PO WK tab 12/09/18 03/12/19 03/10/19 ergocalciferol (vitamin D2) 50,000 50,000 units PO .COMPLEX cap 12/09/18 03/12/19 03/10/19 unit capsule fluoxetine 20 mg capsule 20 mg PO DAILY cap 12/09/18 03/12/19 03/12/19 09:00 fluticasone furoate 200 1 puffs INHALATION DAILY ea 12/09/18 03/12/19 03/12/19 09:00 mcg-vilanterol 25 mcg/dose inhalation powder furosemide 40 mg tablet 40 mg PO DAILY PRN tab 12/09/18 03/12/19 Unknown losartan 100 mg tablet 100 mg PO QPM tab 12/09/18 03/12/19 03/11/19 magnesium oxide 400 mg (241.3 mg 400 mg PO DAILY tab 12/09/18 03/12/19 03/12/19 09:00 magnesium) tablet omeprazole 20 mg capsule,delayed 20 mg PO DAILY cap 12/09/18 03/12/19 Unknown release pravastatin 80 mg tablet 80 mg PO QPM tab 12/09/18 03/12/19 Unknown tiotropium bromide 2.5 2 puffs INHALATION DAILY PRN gm 12/09/18 03/12/19 Unknown mcg/actuation mist for inhalation glimepiride 4 mg tablet 4 mg PO BID tab 02/14/19 03/12/19 03/12/19 09:00 warfarin 2 mg tablet 4 mg PO .QSUNDAY tab 02/14/19 03/12/19 Unknown carvedilol 50 mg PO BID 03/12/19 03/12/19 03/12/19 09:00 dulaglutide 1.5 mg SUBCUT WK 03/12/19 03/12/19 03/06/19 warfarin [Jantoven] 2 mg PO [id number] 03/12/19 03/12/19 03/11/19 Active Medications Generic Name Dose Route Start Last Admin Trade Name Freq PRN Reason Stop Dose Admin Carvedilol 50 mg 03/12/19 21:44 03/13/19 08:43 Coreg PO 04/11/19 21:43 50 mg BID MELISSA Administration Fluoxetine HCl 20 mg 03/13/19 09:00 03/13/19 08:44 Prozac PO 04/12/19 08:59 20 mg DAILY MELISSA Administration Sodium Chloride 250 mls @ 15 mls/hr 03/12/19 15:54 03/13/19 15:38 Nss IV 04/11/19 15:53 Infused .[id number] PRN Infusion For Transfusion Losartan Potassium 100 mg 03/12/19 21:44 03/12/19 22:25 Cozaar PO 04/11/19 21:43 100 mg QPM MELISSA Administration Magnesium Oxide 400 mg 03/13/19 09:00 03/13/19 08:44 Mag-Ox PO 04/12/19 08:59 400 mg DAILY MELISSA Administration Miscellaneous 1 ea 03/13/19 00:00 03/13/19 15:22 Order Awaiting Action N/A 04/12/19 00:00 Not Given QS MELISSA Miscellaneous 1 ea 03/13/19 00:00 03/13/19 15:22 Order Awaiting Action N/A 04/12/19 00:00 Not Given QS MELISSA Pantoprazole Sodium 40 mg 03/12/19 22:30 03/12/19 22:25 Protonix PO 03/16/19 21:01 40 mg BID MELISSA Administration Pravastatin Sodium 80 mg 03/12/19 21:44 03/12/19 22:25 Pravachol PO 04/11/19 21:43 80 mg QPM MELISSA Administration Past Medical History Medical History Anticoagulant long-term use CVA (cerebral vascular accident) Right sided hemiparesis CAD (coronary artery disease) (Chronic) Hypertension (Chronic) LBBB (left bundle branch block) (Chronic) Leg edema (Chronic) Nonischemic cardiomyopathy (Chronic) Systolic CHF (Chronic) Type 2 diabetes mellitus (Chronic) H/O cardiac pacemaker (Resolved) H/O: hysterectomy (Resolved) Past Surgical History Surgical History AICD (automatic cardioverter/defibrillator) present Medtronic S/P AVR Status post mechanical aortic valve replacement (Chronic) H/O lumpectomy (Resolved) Hx of CABG (Resolved) Social History Smoking Status: Never smoker tobacco type: cigarettes Hx Alcohol Use: No Hx Substance Use: No Physical Exam Vital Signs Last Vital Signs Temp 37.0 C 03/13/19 16:14 Pulse 70 03/13/19 16:14 Resp 18 03/13/19 16:14 BP 160/79 H 03/13/19 16:14 Pulse Ox 97 03/13/19 16:14 Testing Laboratory Results 03/13/19 06:27 03/13/19 03:36 PT 27.7 Seconds (9.0-12.0) H 03/13/19 03:36 INR 2.9 (0.9-1.1) H 03/13/19 03:36 APTT 43.8 Seconds (21.0-31.0) H 03/12/19 22:21 Blood Type B Positive 03/12/19 16:02 Antibody Screen NEGATIVE 03/12/19 16:02 03/13/19 03/13/19 03/12/19 11:11 07:27 16:05 POC Glucose 102 H 113 H POC Glucose (other) TNP Electrocardiogram Date: 03/13/19 Atrial-sensed ventricular-paced rhythm with occasional Premature ventricular complexes Biventricular pacemaker detected Abnormal ECG When compared with ECG of 12-APR-2013 11:49, Premature ventricular complexes are now Present Vent. rate has decreased BY 4 BPM Echocardiogram EF: 25-30% Echo 2014: EF 25-30%, global hypokinesis vs multiple regional wall motion abnormalities.
[2019-03-13 10:34] LABS: iSTAT Blood Urea Nitrogen 21 mg/dl (7-18); iSTAT Carbon Dioxide 24 mEq/l (24-31); iSTAT Chloride 102 mEq/L (101-112); iSTAT Creatinine 2.1 mg/dl (0.6-1.3); iSTAT Hematocrit 19 % (37-47); iSTAT Hemoglobin 6.5 g/dl (12.0-16.0); iSTAT Ionized Calcium 1.36 mmol/l (1.12-1.32); iSTAT Potassium 3.7 mEq/L (3.3-5.0); iSTAT Sodium 138 mEq/L (135-144)
[2019-03-13] MEDS ORDERED: INSULIN ASPART 100 UNITS/ML 3 ML PEN SC SCH (12:00)
--- NOTE | 2019-03-13 16:09 | Hospitalist Progress Note ---
Date of Service March 13, 2019 Assessment & Plan (1) GI bleeding: unclear etiology, certainly she presents like a slow bleed as the presented with stable vitals and Hb of 5.4 transfused 2 units, Hb up to 8.5 today BP stable, no signs of active bleeding continue to hold Coumadin INR down to 2.9 plan for EGD and colonoscopy today to try to identify source of bleeding (2) Anemia: blood loss anemia Hb up to 8.5 today (3) Heme positive stool: As the above (4) Aortic valve disorder: Continue monitoring. Hold warfarin while patient has GI bleed INR is 2.9 today (5) Biventricular ICD (implantable cardioverter-defibrillator) in place: Continue home medicine (6) Chronic kidney disease, stage 3: Avoid nephrotoxic agents CR is stable, baseline (7) Dyslipidemia: Continue pravastatin 80 mg p.o. every afternoon (8) Diabetes mellitus: Glycemic control managed by pharmacy. Novolog SS Subjective patient doing well this morning reviewed labs, Hb up to 8.5 after two units transfused no further signs of active GI bleeding INR down to 2.9, discussed with Dr. August, no reason to reverse further patient tolerating bowel prep, stools are clearing no abdominal pain, no vomiting plan for EGD and colonoscopy this afternoon/evening Review of Systems Review of Systems: All systems reviewed & are unremarkable except as noted in HPI & below Constitutional: + fatigue and + weakness; no fever, no chills and no sweats Respiratory: no cough and no dyspnea Cardiovascular: no chest pain and no edema Gastrointestinal: + diarrhea/loose stools (due to bowel prep); no abdominal pain, no nausea, no vomiting, no constipation, no blood in stools and no melena Genitourinary: no dysuria Physical Exam Constitutional: WD/WN, vitals as above + obese Eyes: PERRL, conjunctivae normal, anicteric sclerae ENMT: external ear and nose normal, oropharynx normal Neck: trachea midline, no thyromegaly Respiratory: normal respiratory effort, lungs clear to auscultation Cardiovascular: RRR, no murmur, no edema Gastrointestinal (Abdomen): normal bowel sounds, soft, nontender, no hepatosplenomegaly Musculoskeletal: no cyanosis or clubbing, extremities motor strength 5/5 Skin: no rashes, warm and dry Neurologic: patellar DTR's 2+ bilat, sensation intact and PERRL, EOMI, accommodation nl, no face palsy, no dysarthria Lymphatic: no cervical or axillary lymphadenopathy Results & Data Vital Signs (Past 12 Hours) Vital Signs Temp Pulse Resp BP Pulse Ox 03/13/19 11:48 36.9 C 66 18 158/80 H 97 03/13/19 08:15 36.6 C 67 18 164/81 H 95 Laboratory Results Laboratory Results - last 24 hr 03/12/19 03/12/19 03/12/19 16:02 16:05 21:15 WBC RBC Hgb POC Hgb 6.5 L* Hct POC Hct 19 L* MCV MCH MCHC RDW Std Deviation RDW Coeff of Alexander Plt Count MPV Immature Gran % (Auto) Neut % (Auto) Lymph % (Auto) Collier % (Auto) Eos % (Auto) Baso % (Auto) Immature Gran # (Auto) Neut # (Auto) Lymph # (Auto) Collier # (Auto) Eos # (Auto) Baso # (Auto) Polychromasia Hypochromasia Anisocytosis Microcytosis Tear Drop Cells Ovalocytes PT INR APTT PTT Ratio POC Sodium 138 Sodium POC Potassium 3.7 Potassium POC Chloride 102 Chloride Carbon Dioxide POC Total CO2 24 Anion Gap POC Anion Gap 16.0 POC BUN 21 H BUN Creatinine POC Creatinine 2.1 H Est Cr Clr Drug Dosing Est GFR ( Amer) Est GFR (Non-Af Amer) BUN/Creatinine Ratio Glucose POC Glucose 112 H POC Glucose (other) TNP Calcium POC Ioniz Calcium Yovani 1.36 H Phosphorus Magnesium Total Bilirubin AST ALT Alkaline Phosphatase NT-Pro-B Natriuret Pep Total Protein Albumin Globulin Albumin/Globulin Ratio Hepatitis C Ab Screen Blood Type B Positive Antibody Screen NEGATIVE Crossmatch See Detail 03/12/19 03/12/19 03/12/19 22:21 22:21 22:21 WBC 10.65 RBC 3.20 L Hgb 6.5 L* POC Hgb Hct 22.1 L POC Hct MCV 69.1 L MCH 20.3 L MCHC 29.4 L RDW Std Deviation 48.4 H RDW Coeff of Alexander 19.1 H Plt Count 304 MPV 9.4 Immature Gran % (Auto) 0.4 Neut % (Auto) 66.1 Lymph % (Auto) 21.1 Collier % (Auto) 10.5 Eos % (Auto) 1.7 Baso % (Auto) 0.2 Immature Gran # (Auto) 0.04 H Neut # (Auto) 7.04 H Lymph # (Auto) 2.25 Collier # (Auto) 1.12 H Eos # (Auto) 0.18 Baso # (Auto) 0.02 Polychromasia Hypochromasia Present Anisocytosis Microcytosis Tear Drop Cells 1+ Ovalocytes PT 29.0 H INR 3.1 H APTT 43.8 H PTT Ratio 1.6 POC Sodium Sodium POC Potassium Potassium POC Chloride Chloride Carbon Dioxide POC Total CO2 Anion Gap POC Anion Gap POC BUN BUN Creatinine POC Creatinine Est Cr Clr Drug Dosing Est GFR ( Amer) Est GFR (Non-Af Amer) BUN/Creatinine Ratio Glucose POC Glucose POC Glucose (other) Calcium POC Ioniz Calcium Yovani Phosphorus Magnesium Total Bilirubin AST ALT Alkaline Phosphatase NT-Pro-B Natriuret Pep Total Protein Albumin Globulin Albumin/Globulin Ratio Hepatitis C Ab Screen Neg Blood Type Antibody Screen Crossmatch 03/12/19 03/12/19 03/13/19 22:21 22:21 03:36 WBC RBC Hgb POC Hgb Hct POC Hct MCV MCH MCHC RDW Std Deviation RDW Coeff of Alexander Plt Count MPV Immature Gran % (Auto) Neut % (Auto) Lymph % (Auto) Collier % (Auto) Eos % (Auto) Baso % (Auto) Immature Gran # (Auto) Neut # (Auto) Lymph # (Auto) Collier # (Auto) Eos # (Auto) Baso # (Auto) Polychromasia Hypochromasia Anisocytosis Microcytosis Tear Drop Cells Ovalocytes PT INR APTT PTT Ratio POC Sodium Sodium 142 141 POC Potassium Potassium 4.0 4.2 POC Chloride Chloride 110 H 107 Carbon Dioxide 28 29 POC Total CO2 Anion Gap 4.0 5.0 POC Anion Gap POC BUN BUN 18 16 Creatinine 1.73 H 1.72 H POC Creatinine Est Cr Clr Drug Dosing 29.5 29.7 Est GFR ( Amer) 33.4 33.6 Est GFR (Non-Af Amer) 28.8 29.0 BUN/Creatinine Ratio 10.2 9.3 L Glucose 94 105 H POC Glucose POC Glucose (other) Calcium 8.7 8.5 POC Ioniz Calcium Yovani Phosphorus 3.1 Magnesium 2.0 Total Bilirubin 0.4 0.7 AST 6 L 11 L ALT 9 L 10 L Alkaline Phosphatase 73 72 NT-Pro-B Natriuret Pep 5730 H Total Protein 6.0 L 6.1 L Albumin 2.8 L 2.9 L Globulin 3.2 3.2 Albumin/Globulin Ratio 0.9 0.9 Hepatitis C Ab Screen Blood Type Antibody Screen Crossmatch 03/13/19 03/13/19 03/13/19 03:36 03:36 06:27 WBC 10.26 10.63 RBC 3.69 L 3.95 L Hgb 8.0 L 8.5 L POC Hgb Hct 26.0 L 27.6 L POC Hct MCV 70.5 L 69.9 L MCH 21.7 L 21.5 L MCHC 30.8 L 30.8 L RDW Std Deviation 51.5 H 50.6 H RDW Coeff of Alexander 19.8 H 19.6 H Plt Count 313 329 MPV 9.3 9.3 Immature Gran % (Auto) 0.3 0.3 Neut % (Auto) 67.4 70.8 Lymph % (Auto) 19.1 16.2 Collier % (Auto) 11.3 10.9 Eos % (Auto) 1.7 1.6 Baso % (Auto) 0.2 0.2 Immature Gran # (Auto) 0.03 H 0.03 H Neut # (Auto) 6.92 H 7.53 H Lymph # (Auto) 1.96 1.72 Collier # (Auto) 1.16 H 1.16 H Eos # (Auto) 0.17 0.17 Baso # (Auto) 0.02 0.02 Polychromasia 1+ Hypochromasia Present Present Anisocytosis Present Microcytosis Present Present Tear Drop Cells 1+ Ovalocytes 1+ 1+ PT 27.7 H INR 2.9 H APTT PTT Ratio POC Sodium Sodium POC Potassium Potassium POC Chloride Chloride Carbon Dioxide POC Total CO2 Anion Gap POC Anion Gap POC BUN BUN Creatinine POC Creatinine Est Cr Clr Drug Dosing Est GFR ( Amer) Est GFR (Non-Af Amer) BUN/Creatinine Ratio Glucose POC Glucose POC Glucose (other) Calcium POC Ioniz Calcium Yovani Phosphorus Magnesium Total Bilirubin AST ALT Alkaline Phosphatase NT-Pro-B Natriuret Pep Total Protein Albumin Globulin Albumin/Globulin Ratio Hepatitis C Ab Screen Blood Type Antibody Screen Crossmatch 03/13/19 03/13/19 07:27 11:11 WBC RBC Hgb POC Hgb Hct POC Hct MCV MCH MCHC RDW Std Deviation RDW Coeff of Alexander Plt Count MPV Immature Gran % (Auto) Neut % (Auto) Lymph % (Auto) Collier % (Auto) Eos % (Auto) Baso % (Auto) Immature Gran # (Auto) Neut # (Auto) Lymph # (Auto) Collier # (Auto) Eos # (Auto) Baso # (Auto) Polychromasia Hypochromasia Anisocytosis Microcytosis Tear Drop Cells Ovalocytes PT INR APTT PTT Ratio POC Sodium Sodium POC Potassium Potassium POC Chloride Chloride Carbon Dioxide POC Total CO2 Anion Gap POC Anion Gap POC BUN BUN Creatinine POC Creatinine Est Cr Clr Drug Dosing Est GFR ( Amer) Est GFR (Non-Af Amer) BUN/Creatinine Ratio Glucose POC Glucose 113 H 102 H POC Glucose (other) Calcium POC Ioniz Calcium Yovani Phosphorus Magnesium Total Bilirubin AST ALT Alkaline Phosphatase NT-Pro-B Natriuret Pep Total Protein Albumin Globulin Albumin/Globulin Ratio Hepatitis C Ab Screen Blood Type Antibody Screen Crossmatch Medications Administered Current Inpatient Medications Acetaminophen (Tylenol) 650 mg PO Q4H PRN PRN Reason: Pain or Fever Stop: 04/11/19 21:43 Al Hydrox/Mg Hydrox/Simethicone (Maalox) 15 ml PO Q4H PRN PRN Reason: Dyspepsia Stop: 04/11/19 21:43 Albuterol (Ventolin Hfa) 2 puffs INH Q4 PRN PRN Reason: Shortness Of Breath Or Wheezing Stop: 04/11/19 21:43 Alendronate Sodium (Fosamax) 70 mg PO Mo@0630 [facility] Stop: 04/16/19 06:29 Carvedilol (Coreg) 50 mg PO BID [facility] Stop: 04/11/19 21:43 Last Admin: 03/13/19 08:43 Dose: 50 mg Documented by: Dextrose (Dextrose 50%) 25 - 50 ml IV UD PRN; Protocol PRN Reason: Hypoglycemia Protocol Stop: 04/12/19 10:14 Ergocalciferol (Vitamin D2) 50,000 units PO TODAY@0900 [facility] Stop: 05/08/19 08:59 Fluoxetine HCl (Prozac) 20 mg PO DAILY MELISSA Stop: 04/12/19 08:59 Last Admin: 03/13/19 08:44 Dose: 20 mg Documented by: Furosemide (Lasix) 40 mg PO DAILY PRN PRN Reason: Fluid Retention Stop: 04/11/19 21:43 Glucagon (Glucagen) 1 mg IM UD PRN; Protocol PRN Reason: Hypoglycemia Protocol Stop: 04/12/19 10:14 Glucose (Glucose 40%) 15 - 30 gm PO UD PRN; Protocol PRN Reason: Hypoglycemia Protocol Stop: 04/12/19 10:14 Glucose (Dex4 Glucose) 4 - 8 tabs PO UD PRN; Protocol PRN Reason: Hypoglycemia Protocol Stop: 04/12/19 10:14 Hydralazine HCl (Apresoline) 10 mg PO QID PRN PRN Reason: Blood Pressure - High Stop: 04/12/19 08:59 Sodium Chloride (Nss) 250 mls @ 15 mls/hr IV .[id number] PRN PRN Reason: For Transfusion Stop: 04/11/19 15:53 Last Infusion: 03/13/19 15:38 Dose: Infused Documented by: Insulin Aspart (Novolog Flexpen) 0 units SC Q6 MELISSA Stop: 04/12/19 11:59 Last Admin: 03/13/19 12:46 Dose: Not Given Documented by: Losartan Potassium (Cozaar) 100 mg PO QPM MELISSA Stop: 04/11/19 21:43 Last Admin: 03/12/19 22:25 Dose: 100 mg Documented by: Magnesium Hydroxide (Milk Of Magnesia) 30 ml PO Q12H PRN PRN Reason: Constipation Stop: 04/11/19 21:43 Magnesium Oxide (Mag-Ox) 400 mg PO DAILY MELISSA Stop: 04/12/19 08:59 Last Admin: 03/13/19 08:44 Dose: 400 mg Documented by: Miscellaneous (Order Awaiting Action) 1 ea N/A QS MELISSA Stop: 04/12/19 00:00 Last Admin: 03/13/19 15:22 Dose: Not Given Documented by: Miscellaneous (Order Awaiting Action) 1 ea N/A QS MELISSA Stop: 04/12/19 00:00 Last Admin: 03/13/19 15:22 Dose: Not Given Documented by: Miscellaneous (Carbohydrates For Hypoglycemia) 15 - 30 gm PO UD PRN PRN Reason: Hypoglycemia Treatment Stop: 04/12/19 10:14 Pantoprazole Sodium (Protonix) 40 mg PO BID MELISSA Stop: 03/16/19 21:01 Last Admin: 03/12/19 22:25 Dose: 40 mg Documented by: Pravastatin Sodium (Pravachol) 80 mg PO QPM MELISSA Stop: 04/11/19 21:43 Last Admin: 03/12/19 22:25 Dose: 80 mg Documented by: Fluticasone/Salmeterol (Advair Diskus 250/50) 1 puffs INH BID MELISSA Stop: 04/12/19 20:59 Tiotropium Mullens (Spiriva) 1 puffs INH DAILY PRN PRN Reason: Shortness Of Breath Or Wheezin Zolpidem Tartrate (Ambien) 5 mg PO HS PRN PRN Reason: Sleep Stop: 04/11/19 21:43 PG Care Time/CCT Total # of Minutes Spent Total Time Spent with Patient: Total time spent is greater than 50% in coordination of care (as documented) at patient's floor/unit and/or counseling patient: (1) Anemia Anemia type: unspecified type Qualified Code(s): D64.9 - Anemia, unspecified
[2019-03-13] MEDS: INSULIN ASPART 100 UNITS/ML 3 ML PEN SC SCH ×2 (17:23→20:20)
[2019-03-13] MEDS: FLUTICASONE/SALMETEROL 250/50 (ADVAIR) 14 PUFF/1 INHALER INH SCH (19:17)
[2019-03-13] MEDS: LOSARTAN POTASSIUM 50 MG TAB PO SCH (19:18)
[2019-03-13] MEDS: PANTOprazole 40 MG TAB PO SCH (19:18)
[2019-03-13] MEDS: PRAVASTATIN SOD 40 MG TAB PO SCH (19:18)
[2019-03-14 06:31] LABS: INR 1.9 (0.9-1.1); Prothrombin Time 18.6 Seconds (9.0-12.0)
[2019-03-14 07:03] LABS: Hematocrit (blood only) 26.4 % (37-47); Hemoglobin 8.1 g/dL (12.0-16.0)
[2019-03-14 07:04] LABS: Albumin Level 2.8 gm/dl (3.4-5.0); BUN Creatinine Ratio 9.4 (10-20); Calcium 8.6 mg/dl (8.5-10.1); Creatinine Clr Calc Pharmacy 35.6 ml/min; Est GFR (African American) 42.7; Est GFR (Non-African American) 36.9; Potassium 3.7 mmol/L (3.5-5.1)
[2019-03-14 07:09] LABS: Albumin Globulin Ratio 0.8 (0.9-2); Bilirubin,Total 0.7 mg/dl (0.2-1); Globulin 3.3 gm/dl (2.5-4.0); Total Protein 6.1 gm/dl (6.4-8.2)
[2019-03-14] MEDS: BREO ELLIPTA: ORDER AWAITING ACTION SCH (07:13)
[2019-03-14] MEDS: [UNRECOGNIZED DRUG - REMARK] SCH (07:14)
[2019-03-14] MEDS: FLUTICASONE/SALMETEROL 250/50 (ADVAIR) 14 PUFF/1 INHALER INH SCH (08:01)
[2019-03-14] MEDS: carvediloL 25 MG TAB PO SCH (08:03)
[2019-03-14] MEDS: PANTOprazole 40 MG TAB PO SCH (08:03)
[2019-03-14] MEDS: MAGNESIUM OXIDE 400 MG TAB PO SCH (08:03)
[2019-03-14] MEDS: FLUOXETINE HCL 20 MG CAP PO SCH (08:03)
--- NOTE | 2019-03-14 08:50 | Anesthesiology Consultation ---
Date of Service March 14, 2019 Severe NICM (EF 25%) Pacer Anticoagulated AVR Severe anemia Obesity Diabetes CVA with R sided hemiparesis Assessment & Plan (1) Encounter for pre-operative examination: Chart Review Chart Review: Acceptable Risk for Surgery and Patient NOT seen in Pre Admission Testing Consults Requested none ASA ASA4 Proposed Anesthesia Anesthesia Type: MAC Risk / Benefits Reviewed With: PT / POA / Parent / Guardian, Accepts Plan and Informed Consent Obtained History Surgery Operation Date: 03/14/19 09:30 Proposed Procedures p Colonoscopy EGD Dr. Mata August, DO Height/Weight Height: 5 ft Weight: 90.6 kg Allergies Allergy/AdvReac Type Severity Reaction Status Date / Time amlodipine Allergy Severe RESTLESS Verified 03/12/19 16:44 LEGS OR COLD HANDS/FEET atorvastatin Allergy Severe RESTLESS Verified 03/12/19 16:44 LEGS OR COLD HANDS OR FEET hydrocortisone Allergy Intermediate RASH Verified 03/12/19 16:44 Medications Home Medications Medication Instructions Recorded Confirmed Last Taken albuterol sulfate HFA 90 2 puffs INHALATION Q4 PRN gm 12/09/18 03/12/19 Unknown mcg/actuation aerosol inhaler alendronate 70 mg tablet 70 mg PO WK tab 12/09/18 03/12/19 03/10/19 ergocalciferol (vitamin D2) 50,000 50,000 units PO .COMPLEX cap 12/09/18 03/12/19 03/10/19 unit capsule fluoxetine 20 mg capsule 20 mg PO DAILY cap 12/09/18 03/12/19 03/12/19 09:00 fluticasone furoate 200 1 puffs INHALATION DAILY ea 12/09/18 03/12/19 03/12/19 09:00 mcg-vilanterol 25 mcg/dose inhalation powder furosemide 40 mg tablet 40 mg PO DAILY PRN tab 12/09/18 03/12/19 Unknown losartan 100 mg tablet 100 mg PO QPM tab 12/09/18 03/12/19 03/11/19 magnesium oxide 400 mg (241.3 mg 400 mg PO DAILY tab 12/09/18 03/12/19 03/12/19 09:00 magnesium) tablet omeprazole 20 mg capsule,delayed 20 mg PO DAILY cap 12/09/18 03/12/19 Unknown release pravastatin 80 mg tablet 80 mg PO QPM tab 12/09/18 03/12/19 Unknown tiotropium bromide 2.5 2 puffs INHALATION DAILY PRN gm 12/09/18 03/12/19 Unknown mcg/actuation mist for inhalation glimepiride 4 mg tablet 4 mg PO BID tab 02/14/19 03/12/19 03/12/19 09:00 warfarin 2 mg tablet 4 mg PO .QSUNDAY tab 02/14/19 03/12/19 Unknown carvedilol 50 mg PO BID 03/12/19 03/12/19 03/12/19 09:00 dulaglutide 1.5 mg SUBCUT WK 03/12/19 03/12/19 03/06/19 warfarin [Jantoven] 2 mg PO [id number] 03/12/19 03/12/19 03/11/19 Active Medications Generic Name Dose Route Start Last Admin Trade Name Freq PRN Reason Stop Dose Admin Carvedilol 50 mg 03/12/19 21:44 03/14/19 08:03 Coreg PO 04/11/19 21:43 50 mg BID MELISSA Administration Fluoxetine HCl 20 mg 03/13/19 09:00 03/14/19 08:03 Prozac PO 04/12/19 08:59 20 mg DAILY MELISSA Administration Sodium Chloride 250 mls @ 15 mls/hr 03/12/19 15:54 03/13/19 15:38 Nss IV 04/11/19 15:53 Infused .[id number] PRN Infusion For Transfusion Losartan Potassium 100 mg 03/12/19 21:44 03/13/19 19:18 Cozaar PO 04/11/19 21:43 100 mg QPM MELISSA Administration Magnesium Oxide 400 mg 03/13/19 09:00 03/14/19 08:03 Mag-Ox PO 04/12/19 08:59 Not Given DAILY MELISSA Miscellaneous 1 ea 03/13/19 00:00 03/14/19 07:14 Order Awaiting Action N/A 04/12/19 00:00 Not Given QS MELISSA Miscellaneous 1 ea 03/13/19 00:00 03/14/19 07:13 Order Awaiting Action N/A 04/12/19 00:00 Not Given QS MELISSA Pantoprazole Sodium 40 mg 03/12/19 22:30 03/14/19 08:03 Protonix PO 03/16/19 21:01 40 mg BID MELISSA Administration Pravastatin Sodium 80 mg 03/12/19 21:44 03/13/19 19:18 Pravachol PO 04/11/19 21:43 80 mg QPM MELISSA Administration Fluticasone/Salmeterol 1 puffs 03/13/19 21:00 03/14/19 08:01 Advair Diskus 250/50 INH 04/12/19 20:59 Not Given BID MELISSA NPO Date Last Intake of Fluids: 03/13/19 Time Last Intake of Fluids: 14:00 Date Last Intake of Solids: 03/13/19 Time Last Intake of Solids: 08:00 Past Medical History Medical History Anticoagulant long-term use CVA (cerebral vascular accident) Right sided hemiparesis CAD (coronary artery disease) (Chronic) Hypertension (Chronic) LBBB (left bundle branch block) (Chronic) Leg edema (Chronic) Nonischemic cardiomyopathy (Chronic) Systolic CHF (Chronic) Type 2 diabetes mellitus (Chronic) H/O cardiac pacemaker (Resolved) H/O: hysterectomy (Resolved) Exercise / Class Metabolic Activity IV < 2 Limit ADL/Bedbound Past Surgical History Surgical History AICD (automatic cardioverter/defibrillator) present Medtronic S/P AVR Status post mechanical aortic valve replacement (Chronic) H/O lumpectomy (Resolved) Hx of CABG (Resolved) Past Anesthesia History No Hx of Anesthesia Complications and No Family Hx of Anesthesia Complications History of PONV No Hx of PONV and No Hx of Motion Sickness Social History Smoking Status: Never smoker tobacco type: cigarettes Hx Alcohol Use: No Hx Substance Use: No Physical Exam Vital Signs Last Vital Signs Temp 36.7 C 03/14/19 09:01 Pulse 75 03/14/19 09:01 Resp 18 03/14/19 09:01 BP 171/71 H 03/14/19 09:01 Pulse Ox 96 03/14/19 09:01 Constitutional + obese ENMT Mouth: no dentition abnormality Thyromental Distance: > or= 3.5 Finger Breadths Mallampati Class: II Neck normal visual inspection and + thick neck Respiratory normal respiratory effort Auscultation: lungs clear to auscultation bilaterally Cardiovascular Rate/Rhythm: regular rate and regular rhythm Psychiatric Orientation: alert Testing Laboratory Results 03/14/19 06:08 03/14/19 06:08 PT 18.6 Seconds (9.0-12.0) H 03/14/19 06:08 INR 1.9 (0.9-1.1) H 03/14/19 06:08 APTT 43.8 Seconds (21.0-31.0) H 03/12/19 22:21 Blood Type B Positive 03/12/19 16:02 Antibody Screen NEGATIVE 03/12/19 16:02 03/14/19 03/14/19 03/13/19 06:19 00:07 19:59 POC Glucose 95 75 76 Electrocardiogram Date: 03/13/19 Atrial-sensed ventricular-paced rhythm with occasional Premature ventricular complexes Biventricular pacemaker detected Abnormal ECG When compared with ECG of 12-APR-2013 11:49, Premature ventricular complexes are now Present Vent. rate has decreased BY 4 BPM Echocardiogram EF: 25-30% Echo 2014: EF 25-30%, global hypokinesis vs multiple regional wall motion abnormalities.
--- NOTE | 2019-03-14 09:00 | Gastroenterology Progress Note ---
Date of Service March 14, 2019 Assessment & Plan (1) GI bleeding: (2) Anemia: (3) Heme positive stool: Proceed with EGD and colonoscopy Subjective She is doing well today. No overt GI bleeding. No abdominal pain. Physical Exam Constitutional: WD/WN, vitals as above Respiratory: normal respiratory effort, lungs clear to auscultation Cardiovascular: RRR, no murmur, no edema Gastrointestinal (Abdomen): normal bowel sounds, soft, nontender, no hepatosplenomegaly Results & Data Vital Signs (Past 12 Hours) Vital Signs Temp Pulse Pulse Resp BP Pulse Ox 03/14/19 07:32 36.7 C 70 19 159/76 H 96 03/14/19 06:45 76 03/14/19 03:30 36.7 C 71 18 171/78 H 96 03/14/19 00:00 37.0 C 74 17 169/76 H 94 PG Care Time/CCT Total # of Minutes Spent Total Time Spent with Patient: Total time spent is greater than 50% in coordination of care (as documented) at patient's floor/unit and/or counseling patient: (1) Anemia Anemia type: unspecified type Qualified Code(s): D64.9 - Anemia, unspecified
[2019-03-14] MEDS ORDERED: MIDAZOLAM HCL 1 MG/ML 2ML VIAL ONE (09:02)
[2019-03-14] MEDS ORDERED: ETOMIDATE 2 MG/ML 20 ML VIAL IV ONE (09:09)
[2019-03-14] MEDS ORDERED: PROPOFOL IV EMULSION 10 MG/ML 20 ML VIAL IV ONE (09:09)
[2019-03-14] MEDS ORDERED: ONDANSETRON INJ 2 MG/ML 2 ML VIAL ONE (09:09)
[2019-03-14] MEDS ORDERED: LIDOCAINE HCL 2% 2 ML VIAL/AMP(20MG/ML) INFIL ONE (09:09)
[2019-03-14] MEDS ORDERED: ENDOSCOPIC MARKER 5 ML SYR TOP ONE (09:59)
--- NOTE | 2019-03-14 10:07 | GI REPORT ---
Patient Name: Eleanor Bermeo Procedure Date: 03/14/2019 9:23 AM Date of : 1945 Admit Type: Inpatient Age: 74 Gender: Female Attending MD: Cruz August DO Procedure: Upper GI endoscopy Providers: Cruz August DO Referring MD: Flynn Navarrete Indications: Iron deficiency anemia, Heme positive stool Medicines: Monitored Anesthesia Care Complications: No immediate complications. Estimated Blood Loss: Estimated blood loss: none. Procedure: Pre-Anesthesia Assessment: - Prior to the procedure, a History and Physical was performed, and patient medications and allergies were reviewed. The patient's tolerance of previous anesthesia was also reviewed. The risks and benefits of the procedure and the sedation options and risks were discussed with the patient. All questions were answered, and informed consent was obtained. Prior Anticoagulants: The patient has taken Coumadin (warfarin), last dose was 3 days prior to procedure. ASA Grade Assessment: IV - A patient with severe systemic disease that is a constant threat to life. After reviewing the risks and benefits, the patient was deemed in satisfactory condition to undergo the procedure. After obtaining informed consent, the endoscope was passed under direct vision. Throughout the procedure, the patient's blood pressure, pulse, and oxygen saturations were monitored continuously. The Endoscope was introduced through the mouth, and advanced to the second part of duodenum. The upper GI endoscopy was accomplished without difficulty. The patient tolerated the procedure well. Findings: The esophagus was normal. A medium-sized hiatal hernia was present. The examined duodenum was normal. Impression: - Normal esophagus. - Medium-sized hiatal hernia. - Normal examined duodenum. - No specimens collected. Recommendation: - Clear liquid diet. - Continue present medications. - Perform a colonoscopy today. Cruz August DO 03/14/2019 10:07:14 AM This report has been signed electronically. Note Initiated On: 03/14/2019 9:23 AM Number of Addenda: 0 I attest to the content of the Intraoperative Record and orders documented therein, exceptions below {[id number]}
--- NOTE | 2019-03-14 10:21 | Anesthesiology Progress Note ---
Date of Service March 14, 2019 Anesthesia Post Procedure Vital Signs Vital Signs: Temp Pulse Pulse Pulse Resp BP Pulse Ox 03/14/19 10:18 74 18 133/63 95 03/14/19 10:01 67 16 107/72 96 03/14/19 09:01 36.7 C 75 18 171/71 H 96 03/14/19 07:32 36.7 C 70 19 159/76 H 96 03/14/19 06:45 76 03/14/19 03:30 36.7 C 71 18 171/78 H 96 03/14/19 00:00 37.0 C 74 17 169/76 H 94 03/13/19 19:16 36.6 C 70 17 145/71 H 95 03/13/19 16:14 37.0 C 70 18 160/79 H 97 03/13/19 14:45 72 03/13/19 11:48 36.9 C 66 18 158/80 H 97 Transfer of Care Handoff Completed per policy Notes Mental Status: alert / awake / arousable Patient Amnestic to Procedure: Yes Nausea / Vomiting: adequately controlled Pain: adequately controlled Airway Patency, RR, SpO2: stable & adequate BP & HR: stable & adequate Hydration State: stable & adequate Anesthetic Complications: no major complications apparent
[2019-03-14] MEDS ORDERED: INSULIN ASPART 100 UNITS/ML 3 ML PEN SC SCH ×2 (11:30→12:00)
[2019-03-14] MEDS ORDERED: SODIUM CHLORIDE 0.9% 250 ML IV PRN (11:34)
--- NOTE | 2019-03-14 12:32 | GI REPORT ---
Patient Name: Eleanor Bermeo Procedure Date: 03/14/2019 9:23 AM Date of : 1945 Admit Type: Inpatient Age: 74 Gender: Female Attending MD: Cruz August DO Procedure: Colonoscopy Providers: Cruz August DO Referring MD: Flynn Navarrete Indications: Heme positive stool, Iron deficiency anemia Medicines: Monitored Anesthesia Care Complications: No immediate complications. Estimated Blood Loss: Estimated blood loss: none. Procedure: Pre-Anesthesia Assessment: - Prior to the procedure, a History and Physical was performed, and patient medications and allergies were reviewed. The patient's tolerance of previous anesthesia was also reviewed. The risks and benefits of the procedure and the sedation options and risks were discussed with the patient. All questions were answered, and informed consent was obtained. Prior Anticoagulants: The patient has taken Coumadin (warfarin), last dose was 3 days prior to procedure. ASA Grade Assessment: IV - A patient with severe systemic disease that is a constant threat to life. After reviewing the risks and benefits, the patient was deemed in satisfactory condition to undergo the procedure. After I obtained informed consent, the scope was passed under direct vision. Throughout the procedure, the patient's blood pressure, pulse, and oxygen saturations were monitored continuously. The Colonoscope was introduced through the anus and advanced to the terminal ileum. The colonoscopy was performed without difficulty. The patient tolerated the procedure well. The quality of the bowel preparation was poor. The terminal ileum, ileocecal valve, appendiceal orifice, and rectum were photographed. Findings: The perianal and digital rectal examinations were normal. An infiltrative non-obstructing large mass was found at the hepatic flexure. The mass was circumferential. The mass measured five cm in length. In addition, its diameter measured thirty mm. Oozing was present. Biopsies were taken with a cold forceps for histology. Area was successfully injected with 5 mL Viviana ink for tattooing at distal margin. Non-bleeding internal hemorrhoids were found during retroflexion. The hemorrhoids were small. Impression: - Preparation of the colon was poor. 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 Biopsied. Injected. - Non-bleeding internal hemorrhoids. Recommendation: - [facility]. - Clear liquid diet. - Await pathology results. - Refer to a surgeon today, discussed case with Dr. Doyle and Dr. Drake. Cruz August, DO 03/14/2019 12:31:57 PM This report has been signed electronically. Note Initiated On: 03/14/2019 9:23 AM Number of Addenda: 0 I attest to the content of the Intraoperative Record and orders documented therein, exceptions below {[id number]}
[2019-03-14] MEDS ORDERED: FUROSEMIDE 40 MG TAB PO STA (14:01)
[2019-03-17] MEDS ORDERED: ALENDRONATE SODIUM 70 MG TAB PO SCH (06:30)
--- NOTE | 2019-03-17 08:33 | Discharge Summary ---
Date of Service March 14, 2019 Admission HPI Per Admitting Provider Patient is a 74 years old female with past medical history of CVA, hemiplegia and hemiparesis following CVA, anemia, osteoporosis, diabetes mellitus, stage III chronic kidney insufficiency, coronary artery disease with biventricular ICD/implantable cardioverter defibrillator who presented to the emergency room with shortness of breath on exertion and reported black stool for approximately 2 months. Patient reports that this morning she went for the labs ordered by Dr. Navarrete her supervising appraiser for follow-up of her chronic kidney issues and he informed her that she need to go immediately to the emergency room because of severe anemia. Patient patient appears in no distress while in the bed. She becomes shortness of breath when she is walking around. Her appetite is good. She is on warfarin for aortic valve disorder. Patient denies fever chills chest pain abdominal pain frequency urgency hemoptysis hematemesis. She reports melena for 2 months. Labs are reviewed: White blood cell count 7.43, hemoglobin 5.4, hematocrit 19.3 platelets 379, INR 3.1, PT 29.[address] josh hall slot shift supervisor. And he reported to hold Coumadin at this time, to transfuse as needed to maintain her H&H around 10/30. To start Protonix 40 mg by mouth twice daily. Bowel prep tonight. N.p.o. after midnight. Clear liquids now. EGD and colonoscopy in a.m. Principal Diagnosis Symptomatic anemia, Hb of 5.4 Discharge Exam Constitutional WD/WN, vitals as above + obese Eyes PERRL, conjunctivae normal, anicteric sclerae ENMT external ear and nose normal, oropharynx normal Neck trachea midline, no thyromegaly Respiratory normal respiratory effort, lungs clear to auscultation Cardiovascular RRR, no murmur, no edema Gastrointestinal (Abdomen) normal bowel sounds, soft, nontender, no hepatosplenomegaly Musculoskeletal no cyanosis or clubbing, extremities motor strength 5/5 Skin no rashes, warm and dry Neurologic patellar DTR's 2+ bilat, sensation intact and PERRL, EOMI, accommodation nl, no face palsy, no dysarthria Lymphatic no cervical or axillary lymphadenopathy Discharge Data Allergies Allergy/AdvReac Type Severity Reaction Status Date / Time amlodipine Allergy Severe RESTLESS Verified 03/12/19 16:44 LEGS OR COLD HANDS/FEET atorvastatin Allergy Severe RESTLESS Verified 03/12/19 16:44 LEGS OR COLD HANDS OR FEET hydrocortisone Allergy Intermediate RASH Verified 03/12/19 16:44 Consultations 03/12/19 16:06 ED Decision to Admit Stat 03/12/19 21:44 Consult Gastroenterology Routine Procedures Performed Operation Date: 03/14/19 09:30 Actual Procedures p Esophagogastroduodenoscopy(Not Applicable) - Cruz Knight Case, DO s Colonoscopy Biopsy Cytology(Not Applicable) - Cruz Knight Case, DO Hospital Course (1) Mass of hepatic flexure of colon: discovered on colonoscopy on 03/[address] Hall biopsied and stained with Viviana Ink long discussion with patient, with GI and with general surgery patient with multiple co-morbidities and anesthesia would recommend any surgery to be done at tertiary care patient agrees that she would want tertiary care, requested [facility], she had her prosthetic aortic valve done there offered to get CT abdomen/pelvis and chest done while inpatient but she wanted to go home appointment scheduled with [facility] on 03/18/19 she knows to keep that appt she knows to return to hospital immediately if she has profuse GI bleeding (2) GI bleeding: presented with stable vitals and Hb of 5.4 transfused 2 units, Hb up to 8.5 and then 8.0 BP stable, no signs of active bleeding colonoscopy showed circumferential mass at hepatic flexure on 03/14 biopsy taken Hb stable at 8.0 on 03/14 but since she was going home on anticoagulation, given one more unit of PRBC for 3 units total INR down to 1.9 on discharge, will resume Coumadin (3) Anemia: blood loss anemia Hb up to 8.5 on 03/13 then down slightly to 8.0 on 03/14 given that she would need to be on Coumadin for prosthetic valve, elected to give additional one unit of blood she was discharged after transfusion completed (4) Aortic valve disorder: h/o mechanical aortic valve placed at [facility] Continue monitoring. Hold warfarin while patient has GI bleed INR drifted down to 1.9, will resume Coumadin day of discharge (5) Biventricular ICD (implantable cardioverter-defibrillator) in place: Continue home medicine (6) Chronic kidney disease, stage 3: Avoid nephrotoxic agents CR is stable, baseline (7) Dyslipidemia: Continue pravastatin 80 mg p.o. every afternoon (8) Diabetes mellitus: Glycemic control managed by pharmacy. Novolog SS no hypoglycemic episodes while here Total Time Total Time Spent Total Time Spent (In Minutes): 45 minutes Total Time Includes: Examination of the Patient, Discharge Planning, Medication Reconciliation and Communication With Other Providers (GI, general surgery) Discharge Plan Discharge Items Patient Disposition: Home - Self-Care Reason For Visit: GI BLEED, SEVERE ANEMIA Discharge Diagnosis: GI bleed Colon mass in hepatic flexure Blood loss anemia Condition: Fair Discharge Goals: Diagnostic testing and Specific goals Specific Goals: follow up with colorectal surgery Activity: Per 'Additional Instructions' section Lifting: None Bathing: No limitations Exercise/Sports: Gradually increase as tolerated Driving/Machine Use Comment: no driving until after surgery Non-emergency contact: Primary Care Provider and Surgeon Call non-emergency contact if: you have any medication questions, your symptoms worsen, your pain is not controlled and you have a fever Follow-up/Referrals: Kevin Wilder MD [Primary Care Provider] - 03/17/19 11:30 am (Please, follow up with Dr. Wilder on SundayMarch 17 at 11:30 am. *If you need to change this appointment, call the office at [phone].) Kallie Calles MD [Outside Practitioners] - 03/18/19 2:45 pm (Please, follow up at [facility]'s Colorectal Surgery Office with Dr. Calles on SundayMarch 18 at 2:45 pm. *The office is located at: [address] 3rd Floor [address] [place], [place] The phone number is [phone] option #4 There should be parking in front of the office, if not you could park in the parking garage. PLEASE, TAKE THE ENVELOPE CONTAINING THE IMAGES WITH YOU TO THIS APPOINTMENT.) Diet: Carb Consistent or DM2 and Heart Healthy Addtl Provider Instructions: Medications: - COUMADIN: dose reduced to 2mg daily, do not take 4mg on Sundays GI bleeding with anemia due to mass in hepatic flexure Hemoglobin was 5.4 on admission, transfused two units and up to 8.0 transfused a third unit prior to discharge unfortunately we will have to resume Coumadin with aortic valve replacement if you experience brisk, significant bleeding from rectum then return to the ED Colon mass, circumferential, not actively bleeding biopsies taken by Dr. Hall and the tumor was marked with viviana ink for surgical excision recommend close follow up with colorectal surgery at [facility] appointment made on Sunday03/18/[address] Calles I will send discharge summary to his office with all details of visit as we discussed, he will likely want to get staging work up with CT of the chest, abdomen/pelvis Prescriptions: Continued fluticasone furoate-vilanterol 200-25 mcg/dose blister with device 1 puffs inhalation DAILY RF: 0 tiotropium bromide 2.5 mcg/actuation mist 2 puffs inhalation DAILY PRN (Reason: Shortness Of Breath Or Wheezing) RF: 0 fluoxetine 20 mg capsule 20 mg PO DAILY RF: 0 losartan 100 mg tablet 100 mg PO QPM RF: 0 pravastatin 80 mg tablet 80 mg PO QPM RF: 0 omeprazole 20 mg capsule,delayed release(DR/EC) 20 mg PO DAILY RF: 0 albuterol sulfate 90 mcg/actuation HFA aerosol inhaler 2 puffs inhalation Q4 PRN (Reason: Shortness Of Breath Or Wheezing) RF: 0 furosemide 40 mg tablet 40 mg PO DAILY PRN (Reason: Fluid Retention) RF: 0 ergocalciferol (vitamin D2) 50,000 unit capsule 50,000 units PO .COMPLEX RF: 0 magnesium oxide 400 mg (241.3 mg magnesium) tablet 400 mg PO DAILY RF: 0 alendronate 70 mg tablet 70 mg PO WK RF: 0 glimepiride 4 mg tablet 4 mg PO BID RF: 0 carvedilol 25 mg tablet 50 mg PO BID RF: 0 dulaglutide 1.5 mg/0.5 mL pen injector 1.5 mg subcut WK RF: 0 Changed warfarin [Jantoven] 2 mg tablet 2 mg PO DAILY Qty: 0 RF: 0 Discontinued warfarin 2 mg tablet 4 mg PO .QSUNDAY RF: 0 Stand-Alone Forms: Pending Sale To [facility] Discharge Orders: Discharge Order (Routine); Ordered 03/14/19 Ordered By: Gary Victoria Admission Data Admit Date/Time: 03/12/19 19:40 Attending Provider: Gary Victoria Admit Provider: Zain Estrada Primary Care Provider: Kevin Wilder Other Providers: Zain Estrada ; Cruz Hall Service: Telemetry Other Interventions: Discharge Summary Assessment (RN) Last Done: 03/14/19 13:54 DC Date/Time DO NOT enter until pt leaves facility: 03/14/19 15:25
[2019-04-08] MEDS ORDERED: ERGOCALCIFEROL 50,000 UNITS CAP PO SCH (09:00)
== END 2019-03-14 15:25 | disposition home or self-care (01) | DRG 378 ==
LOC: ED 15:21 → 2S 19:40 → SUATTDRO 19:40 → 2S 20:54